=== PATIENT | male | born 1990 | race African-American/Black ===

== ENCOUNTER 2020-04-14 20:45 | Emergency (ER) | payer SELFPAY ==
[~2020-04-14] VITALS: Ht 170.2 cm; Wt 66.4 kg
[2020-04-14 21:01] VITALS: TEMP 98.6
[2020-04-14] MEDS ORDERED: MOTRIN 600600 MG/TAB PO (21:13)
[2020-04-14 21:53] VITALS: BP 110/72; PULSE 61
== END 2020-04-14 21:53 | disposition home or self-care (01) ==
LOC: COL.ER 20:45
DX: S39.012A Strain of muscle, fascia and tendon of lower back, initial encounter (principal); X58.XXXA Exposure to other specified factors, initial encounter
CPT/HCPCS: J1885

== ENCOUNTER 2020-04-22 00:09 | Emergency (ER) | payer SELFPAY ==
[~2020-04-22] VITALS: Ht 170.2 cm; Wt 68.9 kg
[~2020-04-22 00:09] MED LIST: MOTRIN 600600 MG/TAB PO
[2020-04-22 00:43] VITALS: TEMP 98.3
[2020-04-22] MEDS ORDERED: TYLENOL 325MG325 MG PO (01:23)
[2020-04-22] MEDS ORDERED: MOTRIN 400400 MG/TAB PO (01:23)
[2020-04-22] MEDS ORDERED: AMOXICILLIN 8751 TAB PO (01:23)
[2020-04-22 01:35] VITALS: BP 116/89; PULSE 61
== END 2020-04-22 01:35 | disposition home or self-care (01) ==
LOC: COL.ER 00:09
DX: K04.7 Periapical abscess without sinus (principal); S39.012A Strain of muscle, fascia and tendon of lower back, initial encounter; K02.9 Dental caries, unspecified; F17.210 Nicotine dependence, cigarettes, uncomplicated; X58.XXXA Exposure to other specified factors, initial encounter

== ENCOUNTER 2020-06-21 22:32 | Emergency (ER) | payer OTHER ==
[~2020-06-21] VITALS: Ht 167.6 cm; Wt 65.9 kg
[~2020-06-21 22:32] MED LIST changes: +AMOXICILLIN 8751 TAB PO; +MOTRIN 400400 MG/TAB PO; +TYLENOL 325MG325 MG PO
[2020-06-21 23:09] VITALS: TEMP 98.9
[2020-06-22 01:37] VITALS: BP 134/78; PULSE 78
== END 2020-06-22 01:37 | disposition home or self-care (01) ==
LOC: COL.ER 22:32
DX: B34.9 Viral infection, unspecified (principal); R07.89 Other chest pain; F17.210 Nicotine dependence, cigarettes, uncomplicated
CPT/HCPCS: J1885; J2405; J7030

== ENCOUNTER 2020-07-17 18:33 | Emergency (ER) | payer OTHER ==
[~2020-07-17] VITALS: Ht 167.6 cm; Wt 65.9 kg
[2020-07-17 18:42] VITALS: TEMP 98.1
[2020-07-17 20:06] VITALS: BP 127/88; PULSE 71
== END 2020-07-17 20:05 | disposition home or self-care (01) ==
LOC: COL.ER 18:33
DX: S91.011A Laceration without foreign body, right ankle, initial encounter (principal); F17.210 Nicotine dependence, cigarettes, uncomplicated; W26.9XXA Contact with unspecified sharp object(s), initial encounter; Y93.I9 Activity, other involving external motion

== ENCOUNTER → 2020-07-25 | Outpatient (CLI) | payer OTHER ==
[~2020-07-25] MED LIST changes: +FLEXERIL 1010 MG/TAB PO
[2020-07-25 18:08] VITALS: BP 126/74; PULSE 86; TEMP 97.7
== END ==
LOC: COL.ER 18:02
DX: Z48.02 Encounter for removal of sutures (principal)

== ENCOUNTER 2020-12-29 01:42 | Emergency (ER) | payer OTHER ==
[~2020-12-29] VITALS: Ht 167.6 cm; Wt 59.1 kg
[~2020-12-29 01:42] MED LIST changes: -FLEXERIL 1010 MG/TAB PO
[2020-12-29] MEDS ORDERED: FLEXERIL 1010 MG/TAB PO (03:31)
[2020-12-29 03:56] VITALS: BP 129/86; PULSE 63; TEMP 98.4
== END 2020-12-29 03:56 | disposition home or self-care (01) ==
LOC: COL.ER 01:42
DX: M54.2 Cervicalgia (principal); J45.909 Unspecified asthma, uncomplicated; V43.62XA Car passenger injured in collision with other type car in traffic accident, initial encounter

== ENCOUNTER 2021-02-17 03:14 | Emergency (ER) | payer SELFPAY ==
[~2021-02-17] VITALS: Ht 167.6 cm; Wt 58.2 kg
[~2021-02-17 03:14] MED LIST changes: +FLEXERIL 1010 MG/TAB PO
[2021-02-17 03:24] VITALS: TEMP 98.7
[2021-02-17 04:00] VITALS: BP 128/81; PULSE 80
== END 2021-02-17 03:56 | disposition home or self-care (01) ==
LOC: COL.ER 03:14
DX: L02.91 Cutaneous abscess, unspecified (principal); J45.909 Unspecified asthma, uncomplicated; F17.210 Nicotine dependence, cigarettes, uncomplicated

== ENCOUNTER 2021-06-05 23:44 | Emergency (ER) | payer SELFPAY ==
[~2021-06-05] VITALS: Ht 167.6 cm; Wt 59.1 kg
[2021-06-05 23:48] VITALS: TEMP 97
[2021-06-06 00:52] LABS: TROPONIN-I < 0.010 ng/mL (0.00-0.033)
[2021-06-06 00:53] LABS: ALANINE AMINOTRANSFERASE 20 U/L (0-55); ALBUMIN 3.6 gm/dL (3.5-5.0); ALKALINE PHOSPHATASE 60 U/L (40-150); ANION GAP 9 mmol/L (7-16); AST,SGOT 24 U/L (5-34); BILIRUBIN,TOTAL 0.2 mg/dL (0.2-1.2); BLOOD UREA NITROGEN 10 mg/dL (9-21); CALCIUM 8.8 mg/dL (8.4-10.2); CARBON DIOXIDE 25 mmol/L (22-29); CHLORIDE 104 mmol/L (98-107); CREATININE, serum 0.95 mg/dL (0.72-1.25); GLUCOSE 85 mg/dL (70-99); POTASSIUM 3.6 mmol/L (3.5-4.5); SODIUM 138 mmol/L (136-145); TOTAL PROTEIN 6.2 gm/dL (6.2-8.1)
[2021-06-06 00:54] LABS: BASO % 0.5 % (0.0-2.0); EOS # 0.2 K/mm3 (0.0-0.7); EOS % 3.6 % (0.0-4.0); GRAN # 3.4 K/mm3 (1.4-6.5); GRAN % 54.1 % (42.2-75.2); HEMATOCRIT 43.1 % (42.0-52.0); HEMOGLOBIN 14.5 g/dl (13.5-18.0); LYMPH # 2.1 K/mm3 (1.2-3.4); LYMPH % 33.5 % (20.0-51.0); MEAN CELL VOLUME 88 fl (80.0-100.0); MEAN CORPUSCULAR HEMOGLOBIN 30 pg (27-31); MEAN CORPUSCULAR HGB CONC 34 g/dl (33.0-37.0); MEAN PLATELET VOLUME 8.6 fl (7.4-10.4); MONO # 0.5 K/mm3 (0.1-0.6); MONO % 8.1 % (1.7-9.3); PLATELET COUNT 257 K/mm3 (130-400); REDCELL DISTRIBUTION WIDTH-CV 13.6 % (11.5-14.5)
[2021-06-06 01:04] VITALS: BP 125/89; PULSE 53
== END 2021-06-06 01:10 | disposition home or self-care (01) ==
LOC: COL.ER 23:44
PROVIDERS: Emergency Medicine
DX: R07.9 Chest pain, unspecified (principal)

== ENCOUNTER 2021-10-23 08:33 | Emergency (ER) | payer SELFPAY ==
[~2021-10-23] VITALS: Ht 167.6 cm; Wt 59.1 kg
[2021-10-23 08:47] VITALS: BP 114/74; PULSE 88; TEMP 98.2
== END 2021-10-23 10:10 | disposition home or self-care (01) ==
LOC: COL.ER 08:33
DX: S60.221A Contusion of right hand, initial encounter (principal); Z28.310 Unvaccinated for COVID-19; Z23 Encounter for immunization; Y04.8XXA Assault by other bodily force, initial encounter

== ENCOUNTER 2023-03-23 09:01 | Emergency (ER) | payer OTHER ==
[~2023-03-23] VITALS: Ht 170.2 cm; Wt 68.2 kg
[~2023-03-23 09:01] MED LIST changes: +VOLTAREN 75 DR75 MG PO
[2023-03-23 09:04] VITALS: TEMP 98.4
[2023-03-23 09:18] LABS: BASO # 0.1 K/mm3 (0.0-0.2); BASO % 0.7 % (0.0-2.0); EOS # 0.4 K/mm3 (0.0-0.7); EOS % 5.3 % (0.0-4.0); GRAN # 4.8 K/mm3 (1.4-6.5); GRAN % 67.8 % (42.2-75.2); HEMATOCRIT 46.3 % (42.0-52.0); HEMOGLOBIN 15.6 g/dl (13.5-18.0); LYMPH % 14.7 % (20.0-51.0); MEAN CELL VOLUME 90 fl (80.0-100.0); MEAN CORPUSCULAR HEMOGLOBIN 30 pg (27-31); MEAN CORPUSCULAR HGB CONC 34 g/dl (33.0-37.0); MEAN PLATELET VOLUME 8.9 fl (7.4-10.4); MONO # 0.8 K/mm3 (0.1-0.6); MONO % 11.2 % (1.7-9.3); PLATELET COUNT 267 K/mm3 (130-400); RED BLOOD COUNT 5.13 M/mm3 (4.20-5.60); REDCELL DISTRIBUTION WIDTH-CV 13.2 % (11.5-14.5)
[2023-03-23 09:39] LABS: ALANINE AMINOTRANSFERASE 23 U/L (0-55); ALBUMIN 4.2 gm/dL (3.5-5.0); ALKALINE PHOSPHATASE 73 U/L (40-150); ANION GAP 10 mmol/L (7-16); AST,SGOT 26 U/L (5-34); BILIRUBIN,TOTAL 0.2 mg/dL (0.2-1.2); BLOOD UREA NITROGEN 10 mg/dL (9-21); CALCIUM 10.1 mg/dL (8.4-10.2); CARBON DIOXIDE 24 mmol/L (22-29); CHLORIDE 107 mmol/L (98-107); CREATININE, serum 1.06 mg/dL (0.72-1.25); GLUCOSE 98 mg/dL (70-99); POTASSIUM 3.9 mmol/L (3.5-4.5); SODIUM 141 mmol/L (136-145); TOTAL PROTEIN 7.8 gm/dL (6.2-8.1)
[2023-03-23 10:05] LABS: TROPONIN-I < 0.010 ng/mL (0.00-0.033)
[2023-03-23] MEDS ORDERED: PREDNISONE50 MG PO (10:14)
[2023-03-23 10:21] VITALS: BP 136/92; PULSE 85
== END 2023-03-23 10:20 | disposition home or self-care (01) ==
LOC: COL.ER 09:01
PROVIDERS: Emergency Medicine
DX: J45.901 Unspecified asthma with (acute) exacerbation (principal); J06.9 Acute upper respiratory infection, unspecified; F17.210 Nicotine dependence, cigarettes, uncomplicated
CPT/HCPCS: J2930; J7030

== ENCOUNTER 2024-01-02 03:48 | Emergency (ER) | payer BC ==
[~2024-01-02] VITALS: Ht 165.1 cm; Wt 73.6 kg
[~2024-01-02 03:48] MED LIST changes: +PREDNISONE50 MG PO
[2024-01-02 04:10] VITALS: TEMP 98
[2024-01-02] MEDS ORDERED: DOXYCYCLINE 10100 MG PO (05:09)
[2024-01-02] MEDS ORDERED: Doxycycline Monohydrate 100 MG CAP PO ONE (05:15)
[2024-01-02 05:23] VITALS: BP 131/97; PULSE 66
== END 2024-01-02 05:25 | disposition home or self-care (01) ==
LOC: COL.ER 03:48
DX: L02.416 Cutaneous abscess of left lower limb (principal); F17.200 Nicotine dependence, unspecified, uncomplicated